=== PATIENT | male | born 1965 | race Caucasian/White ===

== ENCOUNTER → 2021-07-15 | Outpatient (CLI) | payer MEDICARE, MEDICAID ==
[~2021-07-15] MED LIST: AMIT50TA; ATOR80TA59; ATRO0.063; CARB100T; CETI-24; CYMB1CAP5 PO; CYMB60CA4 PO; DULE200A INH; DULO1CAP5; DULO1CAP6; ECOT81TA5 PO; FLON1SPR NARES; GABA600T4; LISI2.5T9; METF10004; METO10TA2 PO; METO1TAB32; NITR4TASL SL; OMEP-221; PLAV1TAB2 PO; PROAAER10 INH; THEO1CAP4 PO; TRAZ-189
--- NOTE | 2021-07-15 14:50 | REP ---
INDICATION: HX OF KIDNEY CA. COMPARISON: None. TECHNIQUE: Noncontrast images through the chest with coronal and sagittal reconstructions provided. FINDINGS: The lung puri are well inflated and without effusion, pleural thickening, calcified pleural plaque, pulmonary nodule or parenchymal mass. There is minimal apical pleural scarring. Heart is not enlarged there is no pericardial thickening or effusion. Some coronary artery calcifications are seen. Atherosclerotic calcifications aorta without aneurysm. No pathologic sized mediastinal, hilar, axillary or supraclavicular adenopathy. No hiatal hernia. The bone windows show some marginal osteophytes scattered throughout the thoracic spine without destructive lesions. Sternum, manubrium, medial clavicles, that portion of scapulae, humeral heads and ribs seen were all unremarkable. Upper abdominal structures will be discussed in the CT abdomen report to follow. IMPRESSION: 1. No CT evidence of intrathoracic metastatic disease in the lungs, mediastinum, bones or chest wall soft tissues. Nothing acute. <Electronically signed by Jonny Mendez > 07/15/21 [id number]
--- NOTE | 2021-07-15 15:03 | REP ---
INDICATION: HX OF KIDNEY CA. COMPARISON: None. TECHNIQUE: Noncontrast scanning through the abdomen and pelvis with coronal and sagittal reconstructions. FINDINGS: CT abdomen: Stomach shows small amount of retained food without hiatal hernia or any other abnormality. The liver is mildly enlarged with an 18 point 3 cm vertical diameter of the right lobe in the mid clavicular line. In the right hepatic lobe near the dome of the diaphragm there is an 18 mm subcapsular hypodensity with smooth margins. It has CT attenuation of low single digits consistent with cyst. No other hepatic nodule or mass, biliary dilatation or adjacent ascites. Gallbladder is collapsed without calcified stone or mass pancreas is unremarkable. The left adrenal gland appears normal. The left kidney shows no hydronephrosis, stone or mass there appears to be some compensatory hypertrophy and as an incidental finding there is a retroaortic left renal vein as an anatomic variation. Patient has undergone a left nephrectomy. Small adrenal gland is visible medial to the IVC. There is no periaortic, other retroperitoneal or mesenteric pathologic sized lymphadenopathy. There is anastomotic suture line in the right upper quadrant from a presumed prior right hemicolectomy. Small bowel loops are without dilatation or air-fluid levels remain colon shows stool and gas without signs of colitis or diverticulitis. Calcifications of the aortic wall without aneurysm or dissection. No generalized ascites. Lung window review of all CT slices shows no perforation or free air. The bone windows minor show minor degenerative changes in the spine but no compression deformity or destructive lesion. Visualized lower ribs are unremarkable. CT pelvis: Bone windows shows sacrum, SI joints, pelvis and hips with some minor degenerative change without acute finding. There is spondylolysis of with grade 1 spondylolisthesis of L5 on S1. Distal left colon, sigmoid and rectum with some minor sigmoid diverticulosis but otherwise unremarkable. Vascular calcification iliac vessels and femoral arteries but no aneurysm. The bladder shows only small amount of the urine without mass, wall thickening or stone. No pelvic lymphadenopathy or free fluid. Tang clips from prior vasectomy. Rounded density below the clip may be testis or hyperdense hydrocele on the left. No other significant or acute finding. IMPRESSION: 1. 18 mm simple cyst in the dome of the diaphragm on the right hepatic lobe CT attenuation values in low single digits. 2. Mild hepatomegaly with the liver, spleen, pancreas and gallbladder without acute finding. The gallbladder is the partially contracted with food in the stomach. 3. Left adrenal gland and kidney grossly intact right adrenal gland diminutive and right kidney previously resected for renal carcinoma. There appears to be small right adrenal without a mass seen. 4. L5 spondylolysis with minimal grade 1 spondylolisthesis. <Electronically signed by Jonny Mendez > 07/15/21 [id number]
== END ==
LOC: M RAD 13:13
PROVIDERS: ATTEND Internal Medicine Medical Oncology
DX: K76.89 Other specified diseases of liver (principal); R16.0 Hepatomegaly, not elsewhere classified; M43.16 Spondylolisthesis, lumbar region; Z85.528 Personal history of other malignant neoplasm of kidney

== ENCOUNTER 2023-02-07 10:56 | Day surgery (SDC) | payer MEDICARE, MEDICAID ==
[~2023-02-07] VITALS: Ht 167.6 cm; Wt 94.8 kg
[~2023-02-07 10:56] MED LIST changes: +ADV250INH INH; -AMIT50TA; +AMIT50TA PO; +ARIP1TAB4 PO; +BSS IRRIG/VANCO(10MG)/TOBRA(5MG)/EPINEPH(1:1000-0.5CC)500ML BAG-ORONLY IR ONE; +CEFUROXIME 1MG/0.1ML INTRACAMERAL INJ As Ordered ONE; -CETI-24; +CETI-24 PO; +CLOP75TA99 PO; +CYCLOPENTOLATE 1% OPHTH SOLN 2ML BTL OS SCH; +DILT180C95 PO; -DULE200A INH; +FERR325T19 PO; +GLIM2TAB4 PO; +LIDOCAINE 1% SDV 5ML VIAL As Ordered ONE; +LIDOCAINE 3.5 % 1ML OPHTH TOPICAL GEL OU ONE; +MAGN250T7 PO; -METF10004; +METF10004 PO; -METO1TAB32; +METO1TAB32 PO; +MOME13HF7 INH; +MONT10TA97 PO; +OFLOXACIN 0.3 % (OCUFLOX) OPTH SOL 5ML OS ONE; -OMEP-221; +OMEP40CA5 PO; +OZEM2INJ SQ; +PHENYLEPHRINE 10% OPHTH SOL 5ML OS PRN; +PHENYLEPHRINE 2.5% OPHTH SOL 2ML OS SCH; -PLAV1TAB2 PO; +PREG150C PO; +RANO500T2 PO; -TRAZ-189; +TRAZ-189 PO; +TROPICAMIDE 1% OPHTH SOLN 15ML OS SCH; +VASC0.5C PO
[2023-02-07] MEDS ORDERED: fentaNYL 100 MCG/2 ML INJECTION As Ordered ONE (11:37)
[2023-02-07] MEDS ORDERED: MIDAZOLAM INJ 2MG/2ML VIAL As Ordered ONE (11:37)
[2023-02-07 13:55] VITALS: BP 136/70
== END 2023-02-07 13:59 | disposition home or self-care (01) ==
LOC: M SDC 10:56
PROVIDERS: ATTEND Ophthalmology
DX: H25.12 Age-related nuclear cataract, left eye (principal); H57.03 Miosis; I48.91 Unspecified atrial fibrillation; R94.31 Abnormal electrocardiogram [ECG] [EKG]; I10 Essential (primary) hypertension; I25.2 Old myocardial infarction; E11.9 Type 2 diabetes mellitus without complications; E78.5 Hyperlipidemia, unspecified; Z79.899 Other long term (current) drug therapy; Z79.84 Long term (current) use of oral hypoglycemic drugs; Z79.02 Long term (current) use of antithrombotics/antiplatelets; Z79.51 Long term (current) use of inhaled steroids; G47.33 Obstructive sleep apnea (adult) (pediatric); J44.9 Chronic obstructive pulmonary disease, unspecified; Z85.09 Personal history of malignant neoplasm of other digestive organs; Z86.73 Personal history of transient ischemic attack (TIA), and cerebral infarction without residual deficits; D64.9 Anemia, unspecified; Z87.891 Personal history of nicotine dependence; J30.2 Other seasonal allergic rhinitis; Z88.5 Allergy status to narcotic agent
CPT/HCPCS: 66982; J0697; J2250; J3010; V2632

== ENCOUNTER 2023-02-21 06:19 | Day surgery (SDC) | payer MEDICARE, MEDICAID ==
[~2023-02-21] VITALS: Ht 167.6 cm; Wt 96.3 kg
[~2023-02-21 06:19] MED LIST changes: +ALBU8.5H; -CEFUROXIME 1MG/0.1ML INTRACAMERAL INJ As Ordered ONE; +CYCLOPENTOLATE 1% OPHTH SOLN 2ML BTL OD SCH; -CYCLOPENTOLATE 1% OPHTH SOLN 2ML BTL OS SCH; -LIDOCAINE 1% SDV 5ML VIAL As Ordered ONE; +OFLOXACIN 0.3 % (OCUFLOX) OPTH SOL 5ML OD ONE; -OFLOXACIN 0.3 % (OCUFLOX) OPTH SOL 5ML OS ONE; +PHENYLEPHRINE 10% OPHTH SOL 5ML OD PRN; -PHENYLEPHRINE 10% OPHTH SOL 5ML OS PRN; +PHENYLEPHRINE 2.5% OPHTH SOL 2ML OD SCH; -PHENYLEPHRINE 2.5% OPHTH SOL 2ML OS SCH; +TROPICAMIDE 1% OPHTH SOLN 15ML OD SCH; -TROPICAMIDE 1% OPHTH SOLN 15ML OS SCH
[2023-02-21] MEDS ORDERED: LIDOCAINE 1% SDV 5ML VIAL As Ordered ONE (06:35)
[2023-02-21] MEDS ORDERED: CEFUROXIME 1MG/0.1ML INTRACAMERAL INJ As Ordered ONE (06:35)
[2023-02-21] MEDS ORDERED: fentaNYL 100 MCG/2 ML INJECTION As Ordered ONE (07:14)
[2023-02-21] MEDS ORDERED: MIDAZOLAM INJ 2MG/2ML VIAL As Ordered ONE (07:14)
[2023-02-21 08:25] VITALS: BP 123/76; TEMP 97.4; O2SAT 96
== END 2023-02-21 08:32 | disposition home or self-care (01) ==
LOC: M SDC 06:19
PROVIDERS: ATTEND Ophthalmology
DX: H25.11 Age-related nuclear cataract, right eye (principal); I48.91 Unspecified atrial fibrillation; I10 Essential (primary) hypertension; Z98.61 Coronary angioplasty status; E11.9 Type 2 diabetes mellitus without complications; E78.5 Hyperlipidemia, unspecified; G47.33 Obstructive sleep apnea (adult) (pediatric); Z79.51 Long term (current) use of inhaled steroids; Z79.84 Long term (current) use of oral hypoglycemic drugs; Z79.899 Other long term (current) drug therapy; D64.9 Anemia, unspecified; Z85.09 Personal history of malignant neoplasm of other digestive organs; Z86.73 Personal history of transient ischemic attack (TIA), and cerebral infarction without residual deficits; I25.2 Old myocardial infarction; J44.9 Chronic obstructive pulmonary disease, unspecified; Z79.02 Long term (current) use of antithrombotics/antiplatelets
CPT/HCPCS: 66984; J0697; J2250; J3010; V2632

== ENCOUNTER → 2023-07-05 | Outpatient (CLI) | payer MEDICARE, MEDICAID ==
[~2023-07-05] MED LIST changes: -BSS IRRIG/VANCO(10MG)/TOBRA(5MG)/EPINEPH(1:1000-0.5CC)500ML BAG-ORONLY IR ONE; -CYCLOPENTOLATE 1% OPHTH SOLN 2ML BTL OD SCH; -LIDOCAINE 3.5 % 1ML OPHTH TOPICAL GEL OU ONE; -OFLOXACIN 0.3 % (OCUFLOX) OPTH SOL 5ML OD ONE; -PHENYLEPHRINE 10% OPHTH SOL 5ML OD PRN; -PHENYLEPHRINE 2.5% OPHTH SOL 2ML OD SCH; -PREG150C PO; +PREG150C2 PO; -TROPICAMIDE 1% OPHTH SOLN 15ML OD SCH
== END ==
LOC: M PLAIMG 12:20
PROVIDERS: ATTEND Internal Medicine Critical Care Medicine
DX: R91.8 Other nonspecific abnormal finding of lung field (principal)

== ENCOUNTER → 2023-11-05 | Outpatient (CLI) | payer MEDICARE, MEDICAID | LOC: M RAD 13:19 | PROVIDERS: ATTEND Internal Medicine Critical Care Medicine | DX: R91.8 Other nonspecific abnormal finding of lung field (principal) ==

== ENCOUNTER → 2023-12-14 | Outpatient (CLI) | payer MEDICARE, MEDICAID ==
[~2023-12-14] MED LIST changes: +BARIUM SULFATE 700 MG TABLET (E-Z-DISK) As Ordered ONE; +E-Z-PAQUE 96% w/w SUSP 176GM BTL As Ordered ONE; +VARIBAR NECTAR 40% w/v 240ML SUSP BTL As Ordered ONE; +VARIBAR PUDDING 40% w/v 230ML TUBE As Ordered ONE
== END ==
LOC: M RAD 10:59
PROVIDERS: ATTEND Internal Medicine Critical Care Medicine
DX: J69.0 Pneumonitis due to inhalation of food and vomit (principal)

== ENCOUNTER 2024-05-28 09:47 | Day surgery (SDC) | payer MEDICARE, MEDICAID ==
[~2024-05-28] VITALS: Ht 165.1 cm; Wt 96.6 kg
[~2024-05-28 09:47] MED LIST changes: -ALBU8.5H; +ALBU8.5H INH; -ATOR80TA59; +ATOR80TA59 PO; -ATRO0.063; +ATRO0.063 INH; -BARIUM SULFATE 700 MG TABLET (E-Z-DISK) As Ordered ONE; -CARB100T; +CARB100T11; +CART180C3 PO; +CETI-113 PO; +CLOP75TA2 PO; +DILT180C38 PO; +DULO1CAP5 PO; -E-Z-PAQUE 96% w/w SUSP 176GM BTL As Ordered ONE; +FLUT1BLS5 INH; +GABA-1490; -GABA600T4; +GLIM2TAB29 PO; +HYDR1CRE30 TOP; +ICOS1CAP PO; +IRON65TA2 PO; +MELA10TA2 PO; +MELA5TAB11 PO; +PREG200C2 PO; +REST0.05 OU; +SEMA2PEN SC; -VARIBAR NECTAR 40% w/v 240ML SUSP BTL As Ordered ONE; -VARIBAR PUDDING 40% w/v 230ML TUBE As Ordered ONE; +VASC1CAP2 PO
[2024-05-28] MEDS ORDERED: MIDAZOLAM INJ 2MG/2ML VIAL As Ordered ONE (10:24)
[2024-05-28] MEDS ORDERED: ONDANSETRON 4MG 2ML VIAL As Ordered ONE (10:24)
[2024-05-28] MEDS ORDERED: propofoL 200 MG/20 ML VIAL As Ordered ONE (10:24)
[2024-05-28] MEDS ORDERED: LIDOCAINE 2% 100MG/5ML SDV (FOR ANES.) As Ordered ONE (10:24)
[2024-05-28] MEDS ORDERED: fentaNYL 100 MCG/2 ML INJECTION As Ordered ONE (10:25)
[2024-05-28] MEDS ORDERED: SUGAMMADEX SODIUM 500 MG/5 ML VIAL (BRIDION) As Ordered ONE (10:25)
[2024-05-28] MEDS: LIDOCAINE PRES-FREE 2% 10ML AMP INH ONE (10:45)
[2024-05-28] MEDS: ALBUTEROL SULFATE 2.5MG/0.5ML INH NEB SOLN INH ONE (10:45)
[2024-05-28] MEDS ORDERED: ROCURONIUM BROMIDE 50MG/5ML VIAL As Ordered ONE (10:59)
[2024-05-28] MEDS ORDERED: SEVOFLURANE INHAL SOLN 250 ML BTL As Ordered ONE (11:01)
[2024-05-28] MEDS ORDERED: dexmedeTOMIDine (4MCG/ML)200MCG/50ML BTL (PRECEDEX) As Ordered ONE (11:03)
[2024-05-28] MEDS: EPINEPHrine 1MG/10ML SYRINGE 1.5IN As Ordered ONE (11:30)
[2024-05-28] MEDS: CETACAINE SPRAY 5GM As Ordered ONE (11:30)
[2024-05-28] MEDS ORDERED: fentaNYL 100 MCG/2 ML INJECTION IV PRN ×2 (11:55)
[2024-05-28] MEDS ORDERED: LR 1,000 ML IV SCH (11:55)
[2024-05-28] MEDS ORDERED: ONDANSETRON 4MG 2ML VIAL IV PRN ×2 (11:55)
[2024-05-28 12:58] VITALS: BP 107/53; TEMP 97; O2SAT 97
== END 2024-05-28 12:58 | disposition home or self-care (01) ==
LOC: M SDC 09:47
PROVIDERS: ATTEND Internal Medicine Critical Care Medicine
DX: J84.9 Interstitial pulmonary disease, unspecified (principal); Z87.891 Personal history of nicotine dependence; I48.91 Unspecified atrial fibrillation; Z98.61 Coronary angioplasty status; K21.9 Gastro-esophageal reflux disease without esophagitis; D64.9 Anemia, unspecified; G47.33 Obstructive sleep apnea (adult) (pediatric); I10 Essential (primary) hypertension; E78.5 Hyperlipidemia, unspecified; Z85.09 Personal history of malignant neoplasm of other digestive organs; Z86.73 Personal history of transient ischemic attack (TIA), and cerebral infarction without residual deficits; J30.2 Other seasonal allergic rhinitis; Z88.5 Allergy status to narcotic agent; E11.9 Type 2 diabetes mellitus without complications; I25.2 Old myocardial infarction; J44.9 Chronic obstructive pulmonary disease, unspecified; Z79.51 Long term (current) use of inhaled steroids; Z79.02 Long term (current) use of antithrombotics/antiplatelets; Z79.899 Other long term (current) drug therapy; Z79.84 Long term (current) use of oral hypoglycemic drugs
CPT/HCPCS: 31624; 31628; 31632; 71045; 76000; 87070; 87077; 87102; 87116; 87186; 87205; 87206; 88108; 88305; 88313; J1100; J2250; J2405; J3010

== ENCOUNTER → 2024-12-25 | Outpatient (CLI) | payer MEDICARE, MEDICAID ==
[~2024-12-25] MED LIST changes: -ADV250INH INH; +ADVA1AER9 INH
[2024-12-25 15:48] LABS: BASO # 0.2 10^3/uL (0.0-0.2); BASO % 1.7 % (0.0-1.0); EOS # 0.4 10^3/uL (0.0-0.5); EOS % 3.9 % (0.0-3.0); HEMATOCRIT 45.5 % (42.0-52.0); HEMOGLOBIN 14.7 g/dl (13.5-17.5); LYMPH # 2.7 10^3/uL (1.5-5.0); LYMPH % 26.6 % (24.0-44.0); MEAN CORPUSCULAR HEMOGLOBIN 30.7 pg (27.0-33.0); MEAN CORPUSCULAR HGB CONC 32.3 g/dl (32.0-36.5); MONO # 0.6 10^3/uL (0.0-0.8); MONO % 5.6 % (2.0-8.0); NEUTROPHILS # 6.4 10^3/uL (1.5-8.5); NEUTROPHILS % 61.8 % (36.0-66.0); PLATELET COUNT, AUTOMATED 271 10^3/uL (150-450); RED BLOOD COUNT 4.79 10^6/uL (4.30-6.10); WHITE BLOOD COUNT 10.3 10^3/uL (4.0-10.0)
[2024-12-25 15:54] LABS: ERYTHROCYTE SEDIMENTATION RATE 47 mm/hr (0-20)
[2024-12-25 16:22] LABS: ALBUMIN 3.4 G/DL (3.2-5.2); ALKALINE PHOSPHATASE 80 U/L (40-129); ALT/SGPT 31 U/L (7.0-40); AST/SGOT 14 U/L (<34); BILIRUBIN,TOTAL 0.4 MG/DL (0.3-1.2); BLOOD UREA NITROGEN 11 MG/DL (9-23); C REACTIVE PROTEIN QUANTITATIV 0.96 MG/DL (<1.0); CALCIUM LEVEL 8.9 MG/DL (8.3-10.6); CARBON DIOXIDE LEVEL 28 MMOL/L (20-31); CHLORIDE LEVEL 97 MMOL/L (98-107); CREATININE FOR GFR 0.89 MG/DL (0.70-1.30); GLOMERULAR FILTRATION RATE > 90.0 (>49); GLUCOSE, FASTING 154 MG/DL (74-106); IMMUNOGLOBULIN A 336.3 MG/DL (40-350); IMMUNOGLOBULIN G 1133 MG/DL (650-1600); IMMUNOGLOBULIN M 115.1 MG/DL (50-300); POTASSIUM SERUM 4.7 MMOL/L (3.5-5.1); SODIUM LEVEL 136 MMOL/L (136-145); TOTAL PROTEIN 7.3 G/DL (5.7-8.2)
== END ==
LOC: M PLALAB 11:35
PROVIDERS: ATTEND Internal Medicine Infectious Disease
DX: A31.9 Mycobacterial infection, unspecified (principal)